=== PATIENT | male | born 1995 | race Caucasian/White ===

== ENCOUNTER 2020-03-16 19:30 | Emergency (ER) | payer SELFPAY ==
[~2020-03-16] VITALS: Ht 185.4 cm; Wt 90.7 kg
[2020-03-16 19:32] VITALS: BP 140/73
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
--- NOTE | 2020-03-16 19:50 | NUR ---
ED Nurse Note: pt went to ct accompanied by carlos arrieta
--- NOTE | 2020-03-16 20:05 | NUR ---
ED Nurse Note: pt back from ct
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
[2020-03-16] MEDS ORDERED: MUPIROCIN22 GM TOPIC (20:07)
[2020-03-16] MEDS ORDERED: IBUPROFEN600 M1 ORAL (20:07)
--- NOTE | 2020-03-16 20:15 | NUR ---
ED Nurse Note: dermabond applied by rolandaa. applied dressing and bandage on r upper arm lac.
[2020-03-16 20:25] VITALS: BP 133/67
--- NOTE | 2020-03-16 20:25 | NUR ---
ER DISCHARGE NOTE: Patient is cleared to be discharged per ERMD, pt is aox4, on room air, with stable vital signs. under sheriff was given dc and prescription instructions, pt was able to verbalize understanding, pt id band removed without complications. pt is able to ambulate with steady gait in under sheriff custody.
== END 2020-03-16 20:25 ==
LOC: EDSEX 19:30 → EMR 19:43
DX: S01.111A Laceration without foreign body of right eyelid and periocular area, initial encounter (principal); S40.811A Abrasion of right upper arm, initial encounter; Y04.2XXA Assault by strike against or bumped into by another person, initial encounter; Y92.9 Unspecified place or not applicable
CPT/HCPCS: 70486; 99284